=== PATIENT | male | born 1970 | race American Indian/Alaskan Native ===

== ENCOUNTER 2019-08-15 05:27 | Emergency (ER) | payer SELFPAY ==
[2019-08-15 06:35] VITALS: BP 139/95
--- NOTE | 2019-08-15 06:41 | Emergency Department Report ---
ED Neck Pain/Injury HPI - General Chief Complaint: Neck Pain/Injury Stated Complaint: NECK PAIN Mode of arrival: Ambulatory Limitations: No Limitations - History of Present Illness Initial Comments: 48 year old -Portuguese male presents to the emergency room for neck and shoulder pain started this morning. Patient reports that he felt his blood pressure was elevated so he increased his losartan by one dose. Patient states that the pain has improved. Patient reports he felt like he may have had gas. Patient denies any trauma no injury. Patient denies any headaches or shortness of breath has improved. Patient reports he has been here from the [facility] for the last 3 days. [place] Patient has a history of hypertension diabetes heart stents 3. MD Complaint: neck pain -: This morning Radiation: left shoulder Severity: moderate Quality: aching Consistency: intermittent Associated Symptoms: none ED Review of Systems ROS: Stated complaint: NECK PAIN Other details as noted in HPI Comment: All other systems reviewed and negative ED Past Medical Hx - Past Medical History Previous Medical History?: Yes Hx Hypertension: Yes Hx Diabetes: Yes - Surgical History Past Surgical History?: Yes Additional Surgical History: Heart stents X2 - Social History Smoking Status: Former Smoker Substance Use Type: None ED Physical Exam - General Limitations: No Limitations General appearance: alert, in no apparent distress, obese - Head Head exam: Present: atraumatic, normocephalic - Eye Eye exam: Present: normal appearance - ENT ENT exam: Present: mucous membranes moist - Neck Neck exam: Present: normal inspection, full ROM. Absent: tenderness, lymphadenopathy - Cardiovascular Cardiovascular Exam: Present: regular rate, normal rhythm. Absent: systolic murmur, diastolic murmur, rubs, gallop - Extremities Exam Extremities exam: Present: normal inspection - Neurological Exam Neurological exam: Present: alert, oriented X3, normal gait - Psychiatric Psychiatric exam: Present: normal affect, normal mood - Skin Skin exam: Present: warm, dry, intact, normal color. Absent: rash ED Course Vital Signs 08/15/19 08/15/19 05:31 06:34 Temperature 98.0 F 98.2 F Pulse Rate 99 H 95 H Respiratory 18 22 Rate Blood Pressure 185/118 Blood Pressure 139/95 [Right] O2 Sat by Pulse 94 95 Oximetry ED Medical Decision Making - Medical Decision Making 48 year old -Portuguese male presents to the emergency room for neck and shoulder pain started this morning. Patient reports that he felt his blood pressure was elevated so he increased his losartan by one dose. Patient states that the pain has improved. Patient reports he felt like he may have had gas. Patient denies any trauma no injury. Patient denies any headaches or shortness of breath has improved. Patient reports he has been here from the [facility] for the last 3 days. [place] a [place] Patient has a history of hypertension diabetes heart stents 3. Critical care attestation.: If time is entered above; I have spent that time in minutes in the direct care of this critically ill patient, excluding procedure time. ED Disposition Clinical Impression: Neck pain, HTN (hypertension), Severe obesity (BMI >= 40) Disposition: DC-01 TO HOME OR SELFCARE Is pt being admited?: No Does the pt Need Aspirin: No Condition: Stable Instructions: Hypertension (ED), Obesity (ED) Additional Instructions: Continue taking your blood pressure medications. Tylenol as needed for pain management. Follow up with her primary care provider symptoms persist or gets worse Referrals: PEDRO BARRERA MD [Staff Physician] - 3-5 Days
== END 2019-08-15 07:03 | disposition home or self-care (01) ==
LOC: ED 05:27
DX: M54.2 Cervicalgia (principal); M25.512 Pain in left shoulder; I10 Essential (primary) hypertension; E66.9 Obesity, unspecified
CPT/HCPCS: 99282